=== PATIENT | male | born 1930 | race Caucasian/White ===

== ENCOUNTER → 2016-08-30 | Outpatient (CLI) | payer MEDICARE, OTHER ==
[~2016-08-30] MED LIST: AMIT25 PO; ASPI-119 PO; COUM5TAB PO; DILT60TA33 PO; ENAL2.5T40 PO; FURO1TAB93 PO; NIAC500T34 PO; OMPR20CCR PO; POTA20IN3 PO; SIMV20 PO; SYNT112T PO; TAMS5CAP PO
[2016-08-30 16:08] LABS: AUTOMATED NEUTROPHIL # 1.7 TH/MM3 (1.8-7.7); BASOPHIL % 1.1 % (0.0-2.0); EOSINOPHIL # 0.1 TH/MM3 (0-0.4); EOSINOPHIL % 2.5 % (0.0-4.0); HEMATOCRIT 38.7 % (39.0-51.0); HEMO FLAGS DIFF FINAL; LYMPH % 41.9 % (9.0-44.0); LYMPHOCYTE # 1.6 TH/MM3 (1.0-4.8); MEAN CELL VOLUME 104.4 FL (80.0-100.0); MEAN CORPUSCULAR HEMOGLOBIN 34.8 PG (27.0-34.0); MEAN CORPUSCULAR HGB CONC 33.3 % (32.0-36.0); MONO % 8.6 % (0.0-8.0); NEUT % 45.9 % (16.0-70.0); PLATELET COUNT 156 TH/MM3 (150-450); RED BLOOD COUNT 3.71 MIL/MM3 (4.50-5.90); RED CELL DISTRIBUTION WIDTH 17.2 % (11.6-17.2); WHITE BLOOD COUNT 3.8 TH/MM3 (4.0-11.0)
[2016-08-30 16:20] LABS: BICARBONATE 33.4 MEQ/L (21.0-32.0); POTASSIUM 4.8 MEQ/L (3.5-5.1)
== END ==
LOC: PLAB 12:37
PROVIDERS: ATTEND Family Medicine
DX: I12.9 Hypertensive chronic kidney disease with stage 1 through stage 4 chronic kidney disease, or unspecified chronic kidney disease (principal); N18.3 Chronic kidney disease, stage 3 (moderate); D63.1 Anemia in chronic kidney disease
CPT/HCPCS: 36415; 80048; 83970; 85025

== ENCOUNTER → 2016-11-30 | Outpatient (CLI) | payer MEDICARE, OTHER ==
[2016-11-30 11:52] LABS: AUTOMATED NEUTROPHIL # 1.7 TH/MM3 (1.8-7.7); BASOPHIL # 0.1 TH/MM3 (0-0.2); BASOPHIL % 1.4 % (0.0-2.0); EOSINOPHIL # 0.1 TH/MM3 (0-0.4); EOSINOPHIL % 1.6 % (0.0-4.0); HEMATOCRIT 39.3 % (39.0-51.0); LYMPH % 47.1 % (9.0-44.0); LYMPHOCYTE # 1.8 TH/MM3 (1.0-4.8); MEAN CELL VOLUME 105.9 FL (80.0-100.0); MEAN CORPUSCULAR HEMOGLOBIN 33.9 PG (27.0-34.0); MEAN CORPUSCULAR HGB CONC 32.1 % (32.0-36.0); MONO % 7.7 % (0.0-8.0); NEUT % 42.2 % (16.0-70.0); PLATELET COUNT 158 TH/MM3 (150-450); RED BLOOD COUNT 3.71 MIL/MM3 (4.50-5.90); WHITE BLOOD COUNT 3.9 TH/MM3 (4.0-11.0)
[2016-11-30 11:56] LABS: HEMO FLAGS AUTO DIFF
[2016-11-30 12:15] LABS: ANION GAP 4 MEQ/L (5-15); AST (GOT) 23 U/L (15-37); BICARBONATE 30.8 MEQ/L (21.0-32.0); BLOOD UREA NITROGEN 28 MG/DL (7-18); CHLORIDE 104 MEQ/L (98-107); GLOMERULAR FILTRATION RATE 37 ML/MIN (>89); GLUCOSE,FASTING 89 MG/DL (74-99); POTASSIUM 4.6 MEQ/L (3.5-5.1); SODIUM (NA) 139 MEQ/L (136-145)
[2016-11-30 12:21] LABS: ALKALINE PHOSPHATASE 49 U/L (45-117); ALT (GPT) 26 U/L (12-78); HDL CHOLESTEROL 37.2 MG/DL (40.0-60.0); LDL CHOLESTEROL 54 MG/DL (0-99); TOTAL BILIRUBIN ADULT 0.4 MG/DL (0.2-1.0)
[2016-11-30 12:41] LABS: OVALOCYTES 1+ (NORMAL)
[2016-11-30 12:42] LABS: SCAN/DIFF AUTO DIFF CONFIRMED
== END ==
LOC: PLAB 08:54
PROVIDERS: ATTEND Family Medicine
DX: I10 Essential (primary) hypertension (principal); I25.10 Atherosclerotic heart disease of native coronary artery without angina pectoris; D50.0 Iron deficiency anemia secondary to blood loss (chronic); N25.81 Secondary hyperparathyroidism of renal origin
CPT/HCPCS: 36415; 80053; 80061; 83970; 85025

== ENCOUNTER → 2017-06-02 | Outpatient (CLI) | payer MEDICARE, OTHER ==
[2017-06-02 14:14] LABS: HEMATOCRIT 37.1 % (39.0-51.0); MEAN CELL VOLUME 106.9 FL (80.0-100.0); MEAN CORPUSCULAR HEMOGLOBIN 35.4 PG (27.0-34.0); MEAN CORPUSCULAR HGB CONC 33.1 % (32.0-36.0); PLATELET COUNT 201 TH/MM3 (150-450); RED BLOOD COUNT 3.47 MIL/MM3 (4.50-5.90); RED CELL DISTRIBUTION WIDTH 16.2 % (11.6-17.2); WHITE BLOOD COUNT 3.5 TH/MM3 (4.0-11.0)
[2017-06-02 14:17] LABS: HEMO FLAGS AUTO DIFF
[2017-06-02 14:25] LABS: CHLORIDE 105 MEQ/L (98-107); POTASSIUM 4.5 MEQ/L (3.5-5.1); SODIUM (NA) 139 MEQ/L (136-145)
[2017-06-02 14:46] LABS: ANION GAP 8 MEQ/L (5-15); AST (GOT) 22 U/L (15-37); BICARBONATE 26.1 MEQ/L (21.0-32.0); BLOOD UREA NITROGEN 24 MG/DL (7-18); GLOMERULAR FILTRATION RATE 30 ML/MIN (>89); GLUCOSE,FASTING 97 MG/DL (74-99)
[2017-06-02 15:15] LABS: ALKALINE PHOSPHATASE 45 U/L (45-117); ALT (GPT) 19 U/L (12-78); FERRITIN 439 NG/ML (26-388); LDL CHOLESTEROL 56 MG/DL (0-99); TOTAL BILIRUBIN ADULT 0.4 MG/DL (0.2-1.0); TRANSFERRIN IRON PROFILE 228 MG/DL (200-360)
[2017-06-02 15:35] LABS: BANDS 8 % (0-6); BASOPHILS 1 % (0-2); EOSINOPHILS 6 % (0-4); NEUTROPHIL # MANUAL DIFF 1.5 TH/MM3 (1.8-7.7); POLYS (SEG NEUTROPHILS) 36 % (16-70); WBC DIFF SAMPLE 100
[2017-06-02 15:36] LABS: PLATELET ESTIMATE SMEAR NORMAL (NORMAL); PLATELET MORPHOLOGY NORMAL (NORMAL); SCAN/DIFF FINAL DIFF MANUAL
== END ==
LOC: PLAB 10:45
PROVIDERS: ATTEND Nurse Practitioner Family
DX: I12.9 Hypertensive chronic kidney disease with stage 1 through stage 4 chronic kidney disease, or unspecified chronic kidney disease (principal); N18.4 Chronic kidney disease, stage 4 (severe); D63.1 Anemia in chronic kidney disease; D50.0 Iron deficiency anemia secondary to blood loss (chronic); I48.91 Unspecified atrial fibrillation; E03.8 Other specified hypothyroidism; E55.9 Vitamin D deficiency, unspecified; Z79.01 Long term (current) use of anticoagulants
CPT/HCPCS: 36415; 80053; 80061; 82306; 82607; 82728; 82746; 83540; 83550; 84443; 85007; 85027